=== PATIENT | male | born 1950 | race Asian ===

== ENCOUNTER 2017-02-08 05:44 | Inpatient (IN) | payer OTHER ==
[~2017-02-08] VITALS: Ht 167.6 cm; Wt 99.8 kg
[2017-02-08] VITALS (16 sets, daily range): BP systolic 108–139; BP diastolic 65–89
[2017-02-08] MEDS ORDERED: LOSARTAN POTAS100 MG ORAL (05:46)
[2017-02-08] MEDS ORDERED: VITAMIN D1000 UNI1 ORAL (05:46)
[2017-02-08] MEDS ORDERED: BISOPROLOL FUMAR5 MG PO (05:46)
[2017-02-08] MEDS ORDERED: METFORMIN HCL1000 M3 PO (05:46)
[2017-02-08] MEDS ORDERED: PLAVIX75 MG ORAL (05:46)
[2017-02-08] MEDS ORDERED: ACTOS45 MG ORAL (05:46)
[2017-02-08] MEDS ORDERED: ATORVASTATIN CA20 MG ORAL (05:46)
[2017-02-08] MEDS ORDERED: ASPIR 8181 MG ORAL (05:46)
[2017-02-08] MEDS ORDERED: Thrombin 5000 units TOPIC ONE (07:06)
[2017-02-08] MEDS ORDERED: Bupivacaine w/Epi 0.5% 30ml Vial INJ ONE (07:06)
[2017-02-08] MEDS ORDERED: Thrombin 5000 units spray kit TOPIC ONE (07:07)
[2017-02-08] MEDS ORDERED: Gelfoam Absorbable 1gm powder pkt TOPIC ONE (07:07)
[2017-02-08] MEDS ORDERED: Bacitracin 50000 Units Vial ONE ×2 (07:07→09:52)
--- NOTE | 2017-02-08 07:13 | Pre-Procedure Note/Attestation ---
Pre-Procedure Note/Attestation Complete Prior to Procedure Procedure Narrative: L4-4 & L4-5 instability and disc collapse. For ALIF L3-4 & L4-5 Indications for Procedure Pre-Operative Diagnosis: L4-4 & L4-5 instability and disc collapse Attestation I attest that I discussed the nature of the procedure; its benefits; risks and complications; and alternatives (and the risks and benefits of such alternatives ), prior to the procedure, with the patient (or the patient's legal entry level sales representative). I attest that, if there was a reasonable possibility of needing a blood transfusion, the patient (or the patient's legal entry level sales representative) was given the [place] [facility] standardized written summary, pursuant to the Lio Preethi Blood Safety Act ([place] Health and Safety Code # 1645, as amended). I attest that I re-evaluated the patient just prior to the surgery and that there has been no change in the patient's H&P, except as documented below: LEEROY BLACK Feb 08, 2017 07:13
[2017-02-08] MEDS ORDERED: Heparin 5000 units/ml inj ONE (07:38)
[2017-02-08] MEDS ORDERED: LR 1000ml ONE (08:00)
[2017-02-08] MEDS ORDERED: fentaNYL 250mcg/5ml ONE (08:00)
[2017-02-08] MEDS ORDERED: Zemuron 50mg/5ml Inj IV ONE (08:00)
[2017-02-08] MEDS ORDERED: Sterile Water Irrig 1000ml IRRIG ONE (08:00)
[2017-02-08] MEDS ORDERED: Propofol 10mg/ml 20ml IV ONE (08:00)
[2017-02-08] MEDS ORDERED: Neostigmine 1mg/ml 10ml Inj ONE (08:00)
[2017-02-08] MEDS ORDERED: NS Irrig 1000ml ONE (08:00)
[2017-02-08] MEDS ORDERED: Ketorolac 30mg Inj ONE (08:00)
[2017-02-08] MEDS ORDERED: Succinylcholine 20mg/ml 10ml vial ONE (08:00)
[2017-02-08] MEDS ORDERED: Midazolam 2mg/2ml Inj ONE (08:00)
[2017-02-08] MEDS ORDERED: Glycopyrrolate 0.2mg/ml 1ml Vial ONE (08:00)
[2017-02-08] MEDS ORDERED: LR 1000ml 1,000 ML IVLG SCH (08:38)
--- NOTE | 2017-02-08 08:38 | Anethesia Preoperative Eval ---
Anesthesia Pre-op PMH/ROS General Date of Evaluation: Feb 08, 2017 Time of Evaluation: 07:30 Anesthesiologist: Monica ASA Score: ASA 3 Mallampati Score Class I : Soft palate, uvula, fauces, pillars visible Class II: Soft palate, uvula, fauces visible Class III: Soft palate, base of uvula visible Class IV: Only hard plate visible Mallampati Classification: Class III Surgeon: Felipe Diagnosis: Lumbar radiculopathy Surgical Procedure: Anterior discectomy withninterbody fusion L3-L4 L4-L5 Anesthesia History: none Social History: smoking - h/o Family History: no anesthesia problems Allergies: Coded Allergies: No Known Allergies (Unverified , 02/08/17) Medications: see eMAR Past Medical History Cardiovascular: Reports: CAD - stable coronary stents x2 no recent CP, HTN, Denies: [place], arrhythmia, other, valve dz Pulmonary: Reports: OBED, Denies: COPD, asthma, other Gastrointestinal/Genitourinary: Reports: GERD, Denies: CRI, ESRD, other Neurologic/Psychiatric: Reports: other, Denies: CVA, TIA, dementia, depression/anxiety Endocrine: Reports: DM - on pills, Denies: hypothyroidism, other, steroids HEENT: Denies: GRINDSTONE (L), GRINDSTONE (R), cataract (L), cataract (R), glaucoma, other Hematology/Immune: Denies: DVT, anemia, bleeding disorder, other Musculoskeletal/Integumentary: Denies: DDD, DJD, OA, RA, edema, other Other: obesity PMH Narrative: as above PSxH Narrative: shoulder Sx coronary stents Anesthesia Pre-op Phys. Exam Physician Exam Last Vital Signs Date Time Temp Pulse Resp B/P Pulse Ox O2 Delivery O2 Flow Rate FiO2 02/08/17 06:36 98.0 70 20 139/86 95 Room Air Constitutional: NAD Neurologic: CN 2-12 intact Cardiovascular: RRR, no M/R/G Respiratory: CTA Gastrointestinal: other - obesty Airway Exam Mallampati Score: Class III MO: limited Neck: short ROM: limited Teeth: missing Dentures: no lower, no upper Anesthesia Pre-op A/P Labs see chart Accucheck 119 at admission Studies Pre-op Studies: EKG - NSR, CXR - WNL, echo - EF 60-65% Risk Assessment & Plan Assessment: ASA 3 Plan: GA with ETT Status Change Before Surgery: No Pre-Antibiotics Drug: Ancef 2 gr. Given Within 1 Hr of Incision: Yes Time Given: 08:10 GAIL TERAN M.D. Feb 08, 2017 08:38
[2017-02-08] MEDS ORDERED: Meperidine 25mg/0.5ml Inj (FOR RIGORS ONLY) IV PRN (08:45)
[2017-02-08] MEDS ORDERED: Midazolam 2mg/2ml Inj IVP PRN (08:45)
[2017-02-08] MEDS ORDERED: Ketorolac 30mg Inj IV PRN (08:45)
[2017-02-08] MEDS ORDERED: Hydromorphone 0.5mg/0.5ml inj IVP PRN (08:45)
[2017-02-08] MEDS ORDERED: DiphenhydrAMINE 50mg/ml Inj IVP PRN ×2 (08:45→10:30)
--- NOTE | 2017-02-08 10:25 | Operative Note - PDOC ---
Operative Note Operative Note Pre-op Diagnosis: L4-4 & L4-5 instability and disc collapse Procedure: Anterior Lumbar Discectomy and Fusion with Instrumentation Post-op Diagnosis: same as pre-op Operative Findings: consistent w/pre-op dx studies Surgeon: Felipe Bridge Attacher: FLORA Black Additional Surgeons: Cotton - Vascular Access Anesthesiologist: Monica Anesthesia: general Specimen: yes Complications: none Condition: stable Estimated Blood Loss: minimal Drains: none Implant(s) used?: Yes - Wilfred InFix devices (2) 7 DBM LEEROY BLACK Feb 08, 2017 10:25
[2017-02-08] MEDS ORDERED: LORazepam 1mg tab ORAL PRN (10:30)
[2017-02-08] MEDS ORDERED: Naloxone 0.4mg/ml Inj IVP PRN ×2 (10:30)
[2017-02-08] MEDS ORDERED: Rate Change PCA 1 Each MISC PRN (10:30)
[2017-02-08] MEDS ORDERED: HYDROmorphone 1mg/ml Carpuject IVP PRN (10:30)
[2017-02-08] MEDS ORDERED: Acetaminophen 650 MG SUPP RECTAL PRN (10:30)
--- NOTE | 2017-02-08 10:55 | Immediate Post-Op Evaluation ---
Immediate Post-Op Evalulation Immediate Post-Op Evalulation Procedure: Anterior discectomy fusion L3-L4 L4-L5 Date of Evaluation: Feb 08, 2017 Time of Evaluation: 10:54 IV Fluids: 1200 Blood Products: none Estimated Blood Loss: 100 Urinary Output: 150 Blood Pressure Systolic: 124 Blood Pressure Diastolic: 64 Pulse Rate: 72 Respiratory Rate: 20 O2 Sat by Pulse Oximetry: 99 Temperature (Fahrenheit): 97.6 Pain Score (1-10): 2 Nausea: No Vomiting: No Complications none Patient Status: reacts, patent, extubated, none Hydration Status: adequate GAIL TERAN M.D. Feb 08, 2017 10:55
[2017-02-08] MEDS: PCA HYDROmorphone 1mg/ml 30 ML IV PRN (11:46)
--- NOTE | 2017-02-08 12:00 | Operative Note - Dictated ---
DATE OF OPERATION: 02/08/2017 FACILITY: [facility]. SURGEON: Derek Wang M.D. and co-surgeon with vascular approach is Dr. Cotton. ROTOFORMER BACKTENDER: Betina Johansen ANESTHESIOLOGIST: Pankaj Anderson M.D. ANESTHESIA: General endotracheal with arterial blood pressure monitoring. Pulse oximetry and Cell Saver also utilized. Preoperative Diagnosis: Spondylitic change, disc herniations at L3-4 and L4-5 showing elements of canal and foraminal encroachment as well as instability causing radiculopathy. POSTOPERATIVE DIAGNOSIS: Spondylitic change, disc herniations at L3-4 and L4-5 showing elements of canal and foraminal encroachment as well as instability causing radiculopathy. OPERATIVE PROCEDURE: Left pararectus anterior approach to the lumbar spine with vessel mobilization and retraction by Dr. Cotton using a table fixed frame and reverse tip blades. An anterior annulotomy was done with a nuclear diskectomy, partial vertebrectomy at both L3-4 and L4-5 levels. A bilateral neural foraminotomy and microneurolysis was also accomplished. Fixation at both levels was within infix cage, 12 mm in height, large footprint with 3+3 degrees of added lordosis. Fusion was accomplished using autogenous bone and bone protein. The image intensifier was also used for placement of the cages. The patient was induced in the supine position. He was intubated. An arterial line was created. Bolster was placed in the lumbar area to create normal lordosis. His abdomen was prepped and draped freely. Marker was taken and a left pararectus incision was done by Dr. Cotton. He mobilized the rectus with a retroperitoneal approach to the anterior spine mobilizing both the aorta and vena cava, which were retracted using a table fixed frame and reverse tip blades. The center of the disk at L3-4 and L4-5 were marked with a spinal needle. An AP and lateral image. The anterior disc at L4-5 was then removed using a large 10 blade the cartilaginous endplate and soft disc was then removed sequentially from front to back using angled and straight larger to smaller curettes, Kerrisons, and pituitaries. Distraction was accomplished using Keiko tree detachable lordotic distraction plugs, which began at 8 mm and progressed to 14 mm in maximal height. The posterior longitudinal ligament and posterior disc anulus was removed and the dural sac was exposed. The bilateral neural foraminotomy and microneurolysis at L4-L5 was done. All remnants of the cartilaginous endplates were removed. The cortical end of L4 and 5 were smoothed. An 8 mm template was used with good contact, fit, and good stability. Two large foot plates were then inserted, tapped into place and then the side struts were inserted and cold welded. The construct had good contact of the engaging anchors to the inferior aspect of L4 and superior aspect of L5. The anterior cage is flushed with the anterior vertebral body. On AP view, the cage was well-centered. The size of the cage inserted was 12 mm and not 8 mm. Rest of the construct remains the same with a large foot plate and 3+ 3 degrees of lordosis. Attention was then paid to the L3-4 level. Center of the disc was marked. An anterior annulotomy was accomplished. The nuclear disc at cartilaginous endplate was then sequentially removed from front to back using sequentially larger lordotic distractors. The posterior longitudinal ligament posterior disc anulus were removed and the whole posterior aspect of the disc was debulked. Each foramen was widely cleared to free the exiting and traversing roots. The space was sized up to 12 mm and a 12 mm a large footprint was chosen. The endplates were inserted, tapped into place and then the side struts were placed into the skids. Position was checked and then the struts were locked. Bone protein and autogenous bone that had been harvested during the decompression part of the procedure was placed between the 2 endplates. Final x-rays were taken to check position. Pulse oximetry was checked. There was no significant bleeding at 100 mL. The wound was closed in layers including the peritoneum rectus sheath subcutaneous and skin. The patient tolerated the procedure well. He was placed in a bulky compression dressing and then returned to recovery room in good condition. Derek Wang M.D. DR: ANALISA JOB#: [id number] CC: ELYSE
--- NOTE | 2017-02-08 12:30 | Operative Note - Dictated ---
DATE OF OPERATION: 02/08/2017 VASCULAR SURGEON: Jeremy Cotton M.D. SPINE SURGEON: Derek Wang M.D. PREOPERATIVE DIAGNOSIS: Degenerative disc disease. POSTOPERATIVE DIAGNOSIS: Degenerative disc disease. PROCEDURE PERFORMED: 1. Anterior retroperitoneal exposure of L3-4 vertebral interspace. 2. Anterior retroperitoneal exposure of L4-5 vertebral interspace. INDICATIONS: The patient is a very pleasant gentleman, who is seen in my office prior to surgery. He did come and see me with a elevator constructor electric to translate Polish. He was carefully explained the need for vascular surgery involvement for mobilization of the vascular structures for exposure of the lumbar spine, possibly vascular injury, possible need for blood transfusion, and deep vein thrombosis were all discussed. DESCRIPTION OF FINDINGS: A vertical midline incision was used just extending supraumbilically. A left retroperitoneal approach was used. There is no peritoneum or ureteral violation. There is no vascular injury. Exposure of L3-4 and L4-5 was obtained with retraction of left iliac vessels and distal aorta towards the patient's right. There is no vascular injury. Fluoroscopy is used to confirm the appropriate level. On completion, the peritoneum and ureter intact. Iliac vessels are intact. There is normal pulse oximetry in the left leg. BLOOD LOSS: Less than 100 mL. DESCRIPTION OF PROCEDURE: The patient was taken to the operating room, general anesthesia was used. Intravenous antibiotics were given. The patient's abdomen was prepped draped. Appropriate time-out procedures were taken. A vertical midline incision made infraumbilically and extended just left side of the umbilicus extending just above the umbilicus. The anterior fascia was incised longitudinally midline. A plane was identified posterior to the left rectus abdominis developed posterolaterally towards the patient's left. The retroperitoneal space entered below the arcuate line. The peritoneum and ureter mobilized towards the patient's right exposing the left common iliac vessels. Dissection was carried down on left side of the iliac artery and vein. Overlying lymphatics were ligated with vascular clips. The L3 segmental artery and vein as well as the L4 segmental artery and vein were all identified and ligated with vascular clips and divided. The iliolumbar vein was not a large caliber vessel, defer this to patient and did not require discrete mobilization. The left iliac vessels and distal aorta were then retracted towards the patient's right and using the Omni retractor system. Carmona blades were used to retract the vessels on the patient's right side. The Knox exposing the anterior surface of L3-4 and L4-5. Fluoroscopy then used to confirm the appropriate level and then instrumentation was performed at L3-4 and L4-5 dictated separately. On completion, the peritoneum and ureter intact. Iliac vessels were intact. Anterior fascia closed using #1 PDS in running fashion. Skin and subcutaneous tissue closed with 3-0 Vicryl and 4-0 Monocryl running subcuticular closure technique. ESTIMATED BLOOD LOSS: Less than 100 mL. COMPLICATIONS: None. Jeremy Cotton M.D. DR: MIRNA JOB#: [id number] CC:
--- NOTE | 2017-02-08 13:59 | Diagnostic Imaging Report ---
Indication: PAIN Technique: Intraoperative imaging Comparison: None Findings: Intraoperative images demonstrate surgical tool projected at the anterior aspect of the L3-4 and L4-5 discs. Subsequent images document placement of disc prostheses at these levels. Impression: Intraoperative imaging, as described
[2017-02-08] MEDS: ceFAZolin sod 1 GM in D5W 55 ML IV SCH (15:44)
[2017-02-08] MEDS: PCA shift volume MISC SCH (19:21)
[2017-02-09] MEDS: ceFAZolin sod 1 GM in D5W 55 ML IV SCH ×2 (00:16→08:54)
[2017-02-09 00:32] VITALS: BP 126/77
[2017-02-09 04:00] VITALS: BP 128/74
[2017-02-09] MEDS: PCA shift volume MISC SCH ×2 (07:29→19:13)
[2017-02-09 08:12] VITALS: BP 138/80
--- NOTE | 2017-02-09 08:30 | General Progress Note ---
Assessment/Plan Problem List: (1) Disc disorder of lumbar region ICD Codes: M51.9 - Unspecified thoracic, thoracolumbar and lumbosacral intervertebral disc disorder SNOMED: 41729907, 025407665 (2) Hypertension ICD Codes: I10 - Essential (primary) hypertension SNOMED: 39747618 (3) Atherosclerotic cardiovascular disease ICD Codes: I25.10 - Atherosclerotic heart disease of rincon coronary artery without angina pectoris SNOMED: 34748177 Status: stable Assessment/Plan pain rx ivf mobilize dvt prophylaxis bp rx Subjective ROS Limited/Unobtainable: No Constitutional: Reports: no symptoms HEENT: Reports: no symptoms Cardiovascular: Reports: no symptoms Respiratory: Reports: no symptoms Gastrointestinal/Abdominal: Reports: no symptoms Genitourinary: Reports: no symptoms Neurologic/Psychiatric: Reports: no symptoms Endocrine: Reports: no symptoms Hematologic/Lymphatic: Reports: no symptoms Allergies: Coded Allergies: No Known Allergies (Unverified , 02/08/17) All Systems: reviewed and negative except above Subjective s/p alif and fusion. tolerated well. ambulating with pt. c/o post op pain Objective Last 24 Hour Vital Signs Date Time Temp Pulse Resp B/P Pulse Ox O2 Delivery O2 Flow Rate FiO2 02/09/17 08:12 98.8 94 20 138/80 93 Room Air 02/09/17 04:00 99.1 77 20 128/74 96 Nasal Cannula 3.0 02/09/17 04:00 18 02/09/17 00:32 98.1 78 19 126/77 94 Nasal Cannula 3.0 02/09/17 00:00 18 02/08/17 20:00 17 02/08/17 20:00 98.1 73 20 138/83 96 Nasal Cannula 3.0 02/08/17 16:00 96.2 80 18 110/67 93 Room Air 02/08/17 16:00 17 02/08/17 13:45 97.0 83 17 116/71 94 Nasal Cannula 3.0 02/08/17 13:34 16 02/08/17 13:20 16 02/08/17 13:15 96.1 78 16 114/65 94 Nasal Cannula 3.0 02/08/17 12:35 98.0 85 14 124/71 96 Nasal Cannula 3.0 02/08/17 12:30 15 02/08/17 12:20 78 16 118/89 96 Nasal Cannula 3.0 02/08/17 12:16 97.8 02/08/17 12:15 14 02/08/17 12:05 97.8 02/08/17 12:05 81 14 121/80 96 Nasal Cannula 3.0 02/08/17 12:00 13 02/08/17 11:50 83 14 118/76 96 Nasal Cannula 3.0 02/08/17 11:46 21 02/08/17 11:35 85 23 109/77 96 Nasal Cannula 3.0 02/08/17 11:25 84 15 131/82 96 Nasal Cannula 3.0 02/08/17 11:10 80 16 109/79 96 Simple Mask 6.0 02/08/17 11:00 79 16 126/78 96 Simple Mask 6.0 02/08/17 10:55 72 20 99 02/08/17 10:53 86 25 118/73 96 Simple Mask 6.0 02/08/17 10:48 82 20 123/73 96 Simple Mask 6.0 02/08/17 10:43 97.7 87 18 108/67 96 Simple Mask 6.0 Intake and Output 02/08/17 02/09/17 19:00 07:00 Intake Total 2400 ml 1205 ml Output Total 500 ml 450 ml Balance 1900 ml 755 ml Intake IV Total 2400 ml 1205 ml Output Urine Total 400 ml 450 ml Estimated Blood Loss 100 ml # Voids 1 Height (Feet): 5 Height (Inches): 6.00 Weight (Pounds): 220 General Appearance: WD/WN Neck: supple Cardiovascular: regular rhythm Respiratory/Chest: lungs clear Abdomen: decreased bowel sounds Edema: no edema noted Arm (L), no edema noted Arm (R), no edema noted Leg (L), no edema noted Leg (R), no edema noted Pedal (L), no edema noted Pedal (R), no edema noted Generalized CARRIE COSME Feb 09, 2017 08:30
[2017-02-09] MEDS: Losartan 50mg tab ORAL SCH (08:55)
[2017-02-09] MEDS: Vitamin D 1000 IU Tab ORAL SCH (08:59)
--- NOTE | 2017-02-09 09:49 | General Surgery Progress Note ---
General Surgery-Progress Note Subjective Procedure Performed Anterior Lumbar Discectomy and Fusion with Instrumentation Symptoms: pain same Objective Last 24 Hour Vital Signs Date Time Temp Pulse Resp B/P Pulse Ox O2 Delivery O2 Flow Rate FiO2 02/09/17 08:55 138/80 02/09/17 08:12 98.8 94 20 138/80 93 Room Air 02/09/17 04:00 99.1 77 20 128/74 96 Nasal Cannula 3.0 02/09/17 04:00 18 02/09/17 00:32 98.1 78 19 126/77 94 Nasal Cannula 3.0 02/09/17 00:00 18 02/08/17 20:00 17 02/08/17 20:00 98.1 73 20 138/83 96 Nasal Cannula 3.0 02/08/17 16:00 96.2 80 18 110/67 93 Room Air 02/08/17 16:00 17 02/08/17 13:45 97.0 83 17 116/71 94 Nasal Cannula 3.0 02/08/17 13:34 16 02/08/17 13:20 16 02/08/17 13:15 96.1 78 16 114/65 94 Nasal Cannula 3.0 02/08/17 12:35 98.0 85 14 124/71 96 Nasal Cannula 3.0 02/08/17 12:30 15 02/08/17 12:20 78 16 118/89 96 Nasal Cannula 3.0 02/08/17 12:16 97.8 02/08/17 12:15 14 02/08/17 12:05 97.8 02/08/17 12:05 81 14 121/80 96 Nasal Cannula 3.0 02/08/17 12:00 13 02/08/17 11:50 83 14 118/76 96 Nasal Cannula 3.0 02/08/17 11:46 21 02/08/17 11:35 85 23 109/77 96 Nasal Cannula 3.0 02/08/17 11:25 84 15 131/82 96 Nasal Cannula 3.0 02/08/17 11:10 80 16 109/79 96 Simple Mask 6.0 02/08/17 11:00 79 16 126/78 96 Simple Mask 6.0 02/08/17 10:55 72 20 99 02/08/17 10:53 86 25 118/73 96 Simple Mask 6.0 02/08/17 10:48 82 20 123/73 96 Simple Mask 6.0 02/08/17 10:43 97.7 87 18 108/67 96 Simple Mask 6.0 I&O Intake and Output 02/08/17 02/09/17 19:00 07:00 Intake Total 2400 ml 1205 ml Output Total 500 ml 450 ml Balance 1900 ml 755 ml Intake IV Total 2400 ml 1205 ml Output Urine Total 400 ml 450 ml Estimated Blood Loss 100 ml # Voids 1 Dressing: dry Wound: clean Drains: none Additional Comments Stable overnight, pain remains mostly in low back / abdomen. No lower G/I activity yet. Out of bed today with PT. Lower extremity strength 5/[address] Pena following. LEEROY BLACK Feb 09, 2017 09:49
--- NOTE | 2017-02-09 10:07 | 48 Hour Post Anesthesia Eval ---
Post Anesthesia Evaluation Procedure: Anterior discectomy fusion L3-L4 L4-L5 Date of Evaluation: Feb 09, 2017 Time of Evaluation: 10:10 Blood Pressure Systolic: 138 0: 80 Pulse Rate: 94 Respiratory Rate: 20 Temperature (Fahrenheit): 98.8 O2 Sat by Pulse Oximetry: 93 Airway: patent Nausea: No Vomiting: No Pain Intensity: 6 If pain is > 6 Comment: Patient not using PAEDIATRIC SURGEON. Explained PAEDIATRIC SURGEON use to patient. Hydration Status: adequate Cardiopulmonary Status: Stable Mental Status/LOC: patient returned to baseline Follow-up Care/Observations: As per surgery Post-Anesthesia Complications: No anesthetic complication Follow-up care needed: N/A SIRENA KIM M.D. Feb 09, 2017 10:07
[2017-02-09] MEDS: PCA HYDROmorphone 1mg/ml 30 ML IV PRN (11:40)
[2017-02-09 11:51] VITALS: BP 120/74
[2017-02-09 15:56] VITALS: BP 137/86
[2017-02-09 20:00] VITALS: BP 139/74
[2017-02-10] VITALS (7 sets, daily range): BP systolic 126–146; BP diastolic 67–82
[2017-02-10] MEDS: PCA shift volume MISC SCH (07:00)
[2017-02-10] MEDS: Losartan 50mg tab ORAL SCH (08:55)
[2017-02-10] MEDS: Vitamin D 1000 IU Tab ORAL SCH (08:56)
[2017-02-10] MEDS ORDERED: HYDROmorphone 1mg/ml Carpuject IVP PRN (10:30)
[2017-02-10] MEDS ORDERED: Norco 5mg/325mg tab ORAL PRN (10:30)
[2017-02-10 11:42] LABS: BASOPHILS % (AUTO) 0.4 % (0.0-2.0); EOSINOPHILS % (AUTO) 0.1 % (0.0-3.0); LYMPHOCYTES % (AUTO) 13.2 % (20.0-45.0); MEAN CORPUSCULAR HEMOGLOBIN 33.4 PG (27.0-31.0); MEAN CORPUSCULAR HGB CONC 33.1 G/DL (32.0-36.0); MEAN CORPUSCULAR VOLUME 101 FL (80-99); MEAN PLATELET VOLUME 5.4 FL (6.5-10.1); MONOCYTES % (AUTO) 7.6 % (1.0-10.0); NEUTROPHILS % (AUTO) 78.7 % (45.0-75.0); PLATELET COUNT 159 K/UL (150-450); RED BLOOD COUNT 3.92 M/UL (4.70-6.10); RED CELL DISTRIBUTION WIDTH 10.9 % (11.6-14.8)
[2017-02-10 11:57] LABS: ALANINE AMINOTRANSFERASE 12 U/L (3-41); ALBUMIN/GLOBULIN RATIO 1.1 (1.0-2.7); ANION GAP 11 (5-15); ASPARTATE AMINO TRANSFERASE 35 U/L (5-40); CALCIUM 8.5 mg/dL (8.6-10.2); CARBON DIOXIDE 25 mEQ/L (20-30); CHLORIDE 102 mEQ/L (98-107); CREATININE 0.8 mg/dL (0.7-1.2); GLOMERULAR FILTRATION RATE > 60 mL/min (>60); HEMOLYSIS 6; POTASSIUM 3.9 mEQ/L (3.4-4.9); SODIUM 138 mEQ/L (135-145); TOTAL PROTEIN 6.6 g/dL (6.6-8.7)
[2017-02-10 12:13] LABS: BILIRUBIN,DIRECT 0.2 mg/dL (0.1-0.3)
--- NOTE | 2017-02-10 12:23 | General Surgery Progress Note ---
General Surgery-Progress Note Subjective Procedure Performed Anterior Lumbar Discectomy and Fusion with Instrumentation Symptoms: improved Objective Last 24 Hour Vital Signs Date Time Temp Pulse Resp B/P Pulse Ox O2 Delivery O2 Flow Rate FiO2 02/10/17 12:12 98.0 87 20 131/82 98 Room Air 02/10/17 10:45 16 02/10/17 08:55 134/73 02/10/17 08:10 97.7 89 21 134/73 91 Room Air 02/10/17 08:00 16 02/10/17 08:00 97.7 89 21 134/73 91 Room Air 02/10/17 04:00 16 02/10/17 04:00 99.0 79 17 127/71 93 Room Air 02/10/17 00:00 98.3 80 18 126/74 93 Room Air 02/10/17 00:00 17 02/09/17 20:00 16 02/09/17 20:00 97.6 86 18 139/74 93 Room Air 02/09/17 16:00 18 02/09/17 15:56 98.9 71 20 137/86 100 Room Air I&O Intake and Output 02/09/17 02/10/17 19:00 07:00 Intake Total 1155 ml 1100 ml Output Total 1800 ml 1850 ml Balance -645 ml -750 ml Intake IV Total 1155 ml 1100 ml Output Urine Total 1800 ml 1850 ml # Voids 1 2 Dressing: dry Wound: clean Drains: none Abdomen: soft Laboratory Tests Test 02/10/17 11:05 White Blood Count 9.0 K/UL (4.8-10.8) Red Blood Count 3.92 M/UL (4.70-6.10) L Hemoglobin 13.1 G/DL (14.2-18.0) L Hematocrit 39.6 % (42.0-52.0) L Mean Corpuscular Volume 101 FL (80-99) H Mean Corpuscular Hemoglobin 33.4 PG (27.0-31.0) H Mean Corpuscular Hemoglobin Concent 33.1 G/DL (32.0-36.0) Red Cell Distribution Width 10.9 % (11.6-14.8) L Platelet Count 159 K/UL (150-450) Mean Platelet Volume 5.4 FL (6.5-10.1) L Neutrophils (%) (Auto) 78.7 % (45.0-75.0) H Lymphocytes (%) (Auto) 13.2 % (20.0-45.0) L Monocytes (%) (Auto) 7.6 % (1.0-10.0) Eosinophils (%) (Auto) 0.1 % (0.0-3.0) Basophils (%) (Auto) 0.4 % (0.0-2.0) Sodium Level 138 mEQ/L (135-145) Potassium Level 3.9 mEQ/L (3.4-4.9) Chloride Level 102 mEQ/L (98-107) Carbon Dioxide Level 25 mEQ/L (20-30) Anion Gap 11 (5-15) Blood Urea Nitrogen 12 mg/dL (7-23) Creatinine 0.8 mg/dL (0.7-1.2) Estimat Glomerular Filtration Rate > 60 mL/min (>60) Glucose Level 159 mg/dL (74-106) H Calcium Level 8.5 mg/dL (8.6-10.2) L Total Bilirubin 1.4 mg/dL (0.0-1.2) H Direct Bilirubin 0.2 mg/dL (0.1-0.3) Aspartate Amino Transf (AST/SGOT) 35 U/L (5-40) Alanine Aminotransferase (ALT/SGPT) 12 U/L (3-41) Alkaline Phosphatase 42 U/L (40-129) Total Protein 6.6 g/dL (6.6-8.7) Albumin 3.5 g/dL (3.5-5.2) Globulin 3.1 g/dL Albumin/Globulin Ratio 1.1 (1.0-2.7) Additional Comments No lower track GI gas >>>NPO Out fo bed with PT. Dr. Pena following. LEEROY LBACK Feb 10, 2017 12:22
[2017-02-10] MEDS: HYDROmorphone 1mg/ml Carpuject SUBQ PRN ×2 (12:54→20:01)
--- NOTE | 2017-02-10 14:02 | General Progress Note ---
Assessment/Plan Problem List: (1) Disc disorder of lumbar region ICD Codes: M51.9 - Unspecified thoracic, thoracolumbar and lumbosacral intervertebral disc disorder SNOMED: 49055435, 703092386 (2) Hypertension ICD Codes: I10 - Essential (primary) hypertension SNOMED: 76738076 (3) Atherosclerotic cardiovascular disease ICD Codes: I25.10 - Atherosclerotic heart disease of [place] coronary artery without angina pectoris SNOMED: 16160423 Status: stable Assessment/Plan pain rx ivf labs mobilize dvt prophylaxis bp rx Subjective ROS Limited/Unobtainable: No Constitutional: Reports: malaise, weakness HEENT: Reports: no symptoms Cardiovascular: Reports: no symptoms Respiratory: Reports: no symptoms Gastrointestinal/Abdominal: Reports: constipated Genitourinary: Reports: no symptoms Neurologic/Psychiatric: Reports: no symptoms Endocrine: Reports: no symptoms Hematologic/Lymphatic: Reports: no symptoms Allergies: Coded Allergies: No Known Allergies (Unverified , 02/08/17) All Systems: reviewed and negative except above Subjective s/p alif and fusion. tolerated well. ambulating with pt. pain better controlled. no BMs. Not passing gas. Objective Last 24 Hour Vital Signs Date Time Temp Pulse Resp B/P Pulse Ox O2 Delivery O2 Flow Rate FiO2 02/10/17 12:12 98.0 87 20 131/82 98 Room Air 02/10/17 10:45 16 02/10/17 08:55 134/73 02/10/17 08:10 97.7 89 21 134/73 91 Room Air 02/10/17 08:00 16 02/10/17 08:00 97.7 89 21 134/73 91 Room Air 02/10/17 04:00 16 02/10/17 04:00 99.0 79 17 127/71 93 Room Air 02/10/17 00:00 98.3 80 18 126/74 93 Room Air 02/10/17 00:00 17 02/09/17 20:00 16 02/09/17 20:00 97.6 86 18 139/74 93 Room Air 02/09/17 16:00 18 02/09/17 15:56 98.9 71 20 137/86 100 Room Air Intake and Output 02/09/17 02/10/17 19:00 07:00 Intake Total 1155 ml 1100 ml Output Total 1800 ml 1850 ml Balance -645 ml -750 ml Intake IV Total 1155 ml 1100 ml Output Urine Total 1800 ml 1850 ml # Voids 1 2 Laboratory Tests 02/10/17 11:05: White Blood Count 9.0, Red Blood Count 3.92L, Hemoglobin 13.1L, Hematocrit 39.6L , Mean Corpuscular Volume 101H, Mean Corpuscular Hemoglobin 33.4H, Mean Corpuscular Hemoglobin Concent 33.1, Red Cell Distribution Width 10.9L, Platelet Count 159, Mean Platelet Volume 5.4L, Neutrophils (%) (Auto) 78.7H, Lymphocytes (%) (Auto) 13.2L, Monocytes (%) (Auto) 7.6, Eosinophils (%) (Auto) 0.1, Basophils (%) (Auto) 0.4, Sodium Level 138, Potassium Level 3.9, Chloride Level 102, Carbon Dioxide Level 25, Anion Gap 11, Blood Urea Nitrogen 12, Creatinine 0.8, Estimat Glomerular Filtration Rate > 60, Glucose Level 159H, Calcium Level 8.5L, Total Bilirubin 1.4H, Direct Bilirubin 0.2, Aspartate Amino Transf (AST/SGOT) 35, Alanine Aminotransferase (ALT/SGPT) 12, Alkaline Phosphatase 42, Total Protein 6.6, Albumin 3.5, Globulin 3.1, Albumin/Globulin Ratio 1.1 Height (Feet): 5 Height (Inches): 6.00 Weight (Pounds): 220 General Appearance: WD/WN, no apparent distress, alert Neck: supple Cardiovascular: normal rate, regular rhythm Respiratory/Chest: chest wall non-tender, lungs clear, normal breath sounds, no respiratory distress Abdomen: soft, decreased bowel sounds Edema: no edema noted Arm (L), no edema noted Arm (R), no edema noted Leg (L), no edema noted Leg (R), no edema noted Pedal (L), no edema noted Pedal (R), no edema noted Generalized CARRIE COSME Feb 10, 2017 14:02
[2017-02-10] MEDS ORDERED: guaiFENesin 100mg/5ml Liq ud ORAL PRN (16:45)
[2017-02-11 00:08] VITALS: BP 136/76
[2017-02-11] MEDS: HYDROmorphone 1mg/ml Carpuject SUBQ PRN (03:01)
[2017-02-11 04:13] VITALS: BP 130/70
[2017-02-11 08:06] VITALS: BP 128/72
[2017-02-11] MEDS: Losartan 50mg tab ORAL SCH (08:43)
[2017-02-11] MEDS: Vitamin D 1000 IU Tab ORAL SCH (08:43)
--- NOTE | 2017-02-11 10:47 | General Progress Note ---
Assessment/Plan Problem List: (1) Disc disorder of lumbar region ICD Codes: M51.9 - Unspecified thoracic, thoracolumbar and lumbosacral intervertebral disc disorder SNOMED: 81230968, [id number] (2) Hypertension ICD Codes: I10 - Essential (primary) hypertension SNOMED: 50620189 (3) Atherosclerotic cardiovascular disease ICD Codes: I25.10 - Atherosclerotic heart disease of [place] coronary artery without angina pectoris SNOMED: 01364201 Status: stable, progressing Assessment/Plan pain rx ivf labs mobilize dvt prophylaxis bp rx advance pos?? abx Subjective ROS Limited/Unobtainable: No Constitutional: Reports: no symptoms HEENT: Reports: no symptoms Cardiovascular: Reports: no symptoms Respiratory: Reports: no symptoms Gastrointestinal/Abdominal: Reports: abdomen distended, abdominal pain Genitourinary: Reports: no symptoms Neurologic/Psychiatric: Reports: no symptoms Endocrine: Reports: no symptoms Hematologic/Lymphatic: Reports: no symptoms Allergies: Coded Allergies: No Known Allergies (Unverified , 02/08/17) All Systems: reviewed and negative except above Subjective s/p alif and fusion. tolerated well. ambulating with pt. pain better controlled. no BMs. +passing gas. pain at incision site. no fevers. Objective Last 24 Hour Vital Signs Date Time Temp Pulse Resp B/P Pulse Ox O2 Delivery O2 Flow Rate FiO2 02/11/17 08:43 120/69 02/11/17 08:06 97.3 80 20 128/72 93 Room Air 02/11/17 04:13 98.1 87 19 130/70 93 Room Air 02/11/17 00:08 99.5 89 18 136/76 92 Room Air 02/10/17 20:18 99.5 90 19 146/82 93 Room Air 02/10/17 15:49 97.7 89 20 141/67 97 Room Air 02/10/17 12:12 98.0 87 20 131/82 98 Room Air Intake and Output 02/10/17 02/11/17 19:00 07:00 Intake Total 1200 ml 1340 ml Output Total 500 ml Balance 1200 ml 840 ml Intake Oral 240 ml IV Total 1200 ml 1100 ml Output Urine Total 500 ml # Voids 2 Laboratory Tests 02/10/17 11:05: White Blood Count 9.0, Red Blood Count 3.92L, Hemoglobin 13.1L, Hematocrit 39.6L , Mean Corpuscular Volume 101H, Mean Corpuscular Hemoglobin 33.4H, Mean Corpuscular Hemoglobin Concent 33.1, Red Cell Distribution Width 10.9L, Platelet Count 159, Mean Platelet Volume 5.4L, Neutrophils (%) (Auto) 78.7H, Lymphocytes (%) (Auto) 13.2L, Monocytes (%) (Auto) 7.6, Eosinophils (%) (Auto) 0.1, Basophils (%) (Auto) 0.4, Sodium Level 138, Potassium Level 3.9, Chloride Level 102, Carbon Dioxide Level 25, Anion Gap 11, Blood Urea Nitrogen 12, Creatinine 0.8, Estimat Glomerular Filtration Rate > 60, Glucose Level 159H, Calcium Level 8.5L, Total Bilirubin 1.4H, Direct Bilirubin 0.2, Aspartate Amino Transf (AST/SGOT) 35, Alanine Aminotransferase (ALT/SGPT) 12, Alkaline Phosphatase 42, Total Protein 6.6, Albumin 3.5, Globulin 3.1, Albumin/Globulin Ratio 1.1 Height (Feet): 5 Height (Inches): 6.00 Weight (Pounds): 220 Objective General Appearance: WD/WN, no apparent distress, alert Neck: supple Cardiovascular: normal rate, regular rhythm Respiratory/Chest: chest wall non-tender, lungs clear, normal breath sounds, no respiratory distress Abdomen: soft, decreased bowel sounds. incision- min erythema Edema: no edema noted Arm (L), no edema noted Arm (R), no edema noted Leg (L), no edema noted Leg (R), no edema noted Pedal (L), no edema noted Pedal (R), no edema noted Generalized CARRIE COSME Feb 11, 2017 10:47
[2017-02-11 11:43] VITALS: BP 125/79
[2017-02-11] MEDS: ceFAZolin sod 1 GM in D5W 55 ML IVPB SCH ×3 (12:57→21:23)
--- NOTE | 2017-02-11 13:15 | General Surgery Progress Note ---
General Surgery-Progress Note Subjective Procedure Performed Anterior Lumbar Discectomy and Fusion with Instrumentation Symptoms: improved Objective Last 24 Hour Vital Signs Date Time Temp Pulse Resp B/P Pulse Ox O2 Delivery O2 Flow Rate FiO2 02/11/17 11:43 98.1 76 20 125/79 93 Room Air 02/11/17 08:43 120/69 02/11/17 08:06 97.3 80 20 128/72 93 Room Air 02/11/17 04:13 98.1 87 19 130/70 93 Room Air 02/11/17 00:08 99.5 89 18 136/76 92 Room Air 02/10/17 20:18 99.5 90 19 146/82 93 Room Air 02/10/17 15:49 97.7 89 20 141/67 97 Room Air I&O Intake and Output 02/10/17 02/11/17 19:00 07:00 Intake Total 1200 ml 1340 ml Output Total 500 ml Balance 1200 ml 840 ml Intake Oral 240 ml IV Total 1200 ml 1100 ml Output Urine Total 500 ml # Voids 2 Dressing: dry Wound: clean Drains: none Additional Comments Patient beginning to pass gas. Will advance diet to regular as tolerated. When tolerating full diet will be ready for discharge. Dr. Pena following. LEEROY BLACK Feb 11, 2017 13:15
[2017-02-11 15:59] VITALS: BP 124/75
[2017-02-11 20:36] VITALS: BP 145/79
[2017-02-12 00:35] VITALS: BP 149/81
[2017-02-12 04:00] VITALS: BP 140/80
[2017-02-12] MEDS: Norco 7.5mg/325mg tab ORAL PRN (05:02)
[2017-02-12] MEDS: ceFAZolin sod 1 GM in D5W 55 ML IVPB SCH ×3 (05:02→21:30)
[2017-02-12 06:43] LABS: BASOPHILS % (AUTO) 0.6 % (0.0-2.0); EOSINOPHILS % (AUTO) 2.1 % (0.0-3.0); LYMPHOCYTES % (AUTO) 14.9 % (20.0-45.0); MEAN CORPUSCULAR HEMOGLOBIN 33.6 PG (27.0-31.0); MEAN CORPUSCULAR HGB CONC 33.7 G/DL (32.0-36.0); MEAN CORPUSCULAR VOLUME 99 FL (80-99); MEAN PLATELET VOLUME 5.7 FL (6.5-10.1); MONOCYTES % (AUTO) 8.8 % (1.0-10.0); NEUTROPHILS % (AUTO) 73.6 % (45.0-75.0); PLATELET COUNT 189 K/UL (150-450); RED BLOOD COUNT 3.57 M/UL (4.70-6.10); RED CELL DISTRIBUTION WIDTH 10.8 % (11.6-14.8); WHITE BLOOD COUNT 7.3 K/UL (4.8-10.8)
[2017-02-12 08:00] VITALS: BP 125/74
--- NOTE | 2017-02-12 08:25 | General Progress Note ---
Assessment/Plan Problem List: (1) Disc disorder of lumbar region ICD Codes: M51.9 - Unspecified thoracic, thoracolumbar and lumbosacral intervertebral disc disorder SNOMED: 53348763, 192224694 (2) Hypertension ICD Codes: I10 - Essential (primary) hypertension SNOMED: 06550705 (3) Atherosclerotic cardiovascular disease ICD Codes: I25.10 - Atherosclerotic heart disease of [place] coronary artery without angina pectoris SNOMED: 14212344 Status: stable, progressing Assessment/Plan pain rx ivf dcd mobilize dvt prophylaxis bp rx abx po Subjective ROS Limited/Unobtainable: No Constitutional: Reports: malaise, weakness HEENT: Reports: no symptoms Cardiovascular: Reports: no symptoms Respiratory: Reports: no symptoms Gastrointestinal/Abdominal: Reports: no symptoms Genitourinary: Reports: no symptoms Neurologic/Psychiatric: Reports: no symptoms Endocrine: Reports: no symptoms Hematologic/Lymphatic: Reports: no symptoms Allergies: Coded Allergies: No Known Allergies (Unverified , 02/08/17) All Systems: reviewed and negative except above Subjective s/p alif and fusion. tolerated well. ambulating with pt. pain better controlled. no BMs. +passing gas. still no bms. abd pain better. tolerating pos Objective Last 24 Hour Vital Signs Date Time Temp Pulse Resp B/P Pulse Ox O2 Delivery O2 Flow Rate FiO2 02/12/17 04:00 97.9 82 17 140/80 92 Room Air 02/12/17 00:35 97.7 81 19 149/81 93 Room Air 02/11/17 20:36 97.7 72 19 145/79 96 Room Air 02/11/17 15:59 98.3 68 20 124/75 95 Room Air 02/11/17 11:43 98.1 76 20 125/79 93 Room Air 02/11/17 08:43 120/69 Intake and Output 02/11/17 02/12/17 19:00 07:00 Intake Total 1420 ml 840 ml Output Total 425 ml Balance 995 ml 840 ml Intake Oral 720 ml 240 ml IV Total 700 ml 600 ml Output Urine Total 425 ml # Voids 1 1 Laboratory Tests 02/12/17 05:45: White Blood Count 7.3, Red Blood Count 3.57L, Hemoglobin 12.0L, Hematocrit 35.5L , Mean Corpuscular Volume 99, Mean Corpuscular Hemoglobin 33.6H, Mean Corpuscular Hemoglobin Concent 33.7, Red Cell Distribution Width 10.8L, Platelet Count 189, Mean Platelet Volume 5.7L, Neutrophils (%) (Auto) 73.6, Lymphocytes (%) (Auto) 14.9L, Monocytes (%) (Auto) 8.8, Eosinophils (%) (Auto) 2.1, Basophils (%) (Auto) 0.6 Height (Feet): 5 Height (Inches): 6.00 Weight (Pounds): 220 Objective General Appearance: WD/WN, no apparent distress, alert Neck: supple Cardiovascular: normal rate, regular rhythm Respiratory/Chest: chest wall non-tender, lungs clear, normal breath sounds, no respiratory distress Abdomen: soft, decreased bowel sounds. incision- min erythema Edema: no edema noted Arm (L), no edema noted Arm (R), no edema noted Leg (L), no edema noted Leg (R), no edema noted Pedal (L), no edema noted Pedal (R), no edema noted Generalized CARRIE COSME Feb 12, 2017 08:25
--- NOTE | 2017-02-12 09:05 | General Surgery Progress Note ---
General Surgery-Progress Note Subjective Procedure Performed Anterior Lumbar Discectomy and Fusion with Instrumentation Symptoms: improved Objective Last 24 Hour Vital Signs Date Time Temp Pulse Resp B/P Pulse Ox O2 Delivery O2 Flow Rate FiO2 02/12/17 08:00 97.9 73 19 125/74 93 Room Air 02/12/17 04:00 97.9 82 17 140/80 92 Room Air 02/12/17 00:35 97.7 81 19 149/81 93 Room Air 02/11/17 20:36 97.7 72 19 145/79 96 Room Air 02/11/17 15:59 98.3 68 20 124/75 95 Room Air 02/11/17 11:43 98.1 76 20 125/79 93 Room Air I&O Intake and Output 02/11/17 02/12/17 19:00 07:00 Intake Total 1420 ml 840 ml Output Total 425 ml Balance 995 ml 840 ml Intake Oral 720 ml 240 ml IV Total 700 ml 600 ml Output Urine Total 425 ml # Voids 1 1 Dressing: dry Wound: clean Drains: none Laboratory Tests Test 02/12/17 05:45 White Blood Count 7.3 K/UL (4.8-10.8) Red Blood Count 3.57 M/UL (4.70-6.10) L Hemoglobin 12.0 G/DL (14.2-18.0) L Hematocrit 35.5 % (42.0-52.0) L Mean Corpuscular Volume 99 FL (80-99) Mean Corpuscular Hemoglobin 33.6 PG (27.0-31.0) H Mean Corpuscular Hemoglobin Concent 33.7 G/DL (32.0-36.0) Red Cell Distribution Width 10.8 % (11.6-14.8) L Platelet Count 189 K/UL (150-450) Mean Platelet Volume 5.7 FL (6.5-10.1) L Neutrophils (%) (Auto) 73.6 % (45.0-75.0) Lymphocytes (%) (Auto) 14.9 % (20.0-45.0) L Monocytes (%) (Auto) 8.8 % (1.0-10.0) Eosinophils (%) (Auto) 2.1 % (0.0-3.0) Basophils (%) (Auto) 0.6 % (0.0-2.0) Additional Comments Patient took full regular meal this AM. Need patient to tolerate at last one more full meal before saafe to discharge.. RN Home Health Evaluation scheduled to take place this AM, authorized by insurance carrier, to decide if patient will need home health services. manager body evaluation requested for this AM to see if patient can go home alone. (Above mentioned home health services not NOT likely to start right away) . Dr. Pena following. LEEROY BLACK Feb 12, 2017 09:05
[2017-02-12] MEDS: Vitamin D 1000 IU Tab ORAL SCH (09:07)
[2017-02-12] MEDS: Losartan 50mg tab ORAL SCH (09:07)
[2017-02-12 12:00] VITALS: BP 131/75
[2017-02-12] MEDS ORDERED: Miralax 17gm pkt ORAL ONE (12:00)
[2017-02-12 16:00] VITALS: BP 131/75
[2017-02-12 20:00] VITALS: BP 142/72
[2017-02-12] MEDS: Atorvastatin 20mg tab ORAL SCH (21:30)
[2017-02-13 00:13] VITALS: BP 134/71
[2017-02-13] MEDS: Norco 7.5mg/325mg tab ORAL PRN (01:29)
[2017-02-13 04:00] VITALS: BP 106/74
[2017-02-13] MEDS: ceFAZolin sod 1 GM in D5W 55 ML IVPB SCH ×2 (06:15→14:10)
[2017-02-13 08:01] VITALS: BP 127/69
--- NOTE | 2017-02-13 09:05 | General Progress Note ---
Assessment/Plan Problem List: (1) Disc disorder of lumbar region ICD Codes: M51.9 - Unspecified thoracic, thoracolumbar and lumbosacral intervertebral disc disorder SNOMED: 12438440, 403959990 (2) Hypertension ICD Codes: I10 - Essential (primary) hypertension SNOMED: 38081225 (3) Atherosclerotic cardiovascular disease ICD Codes: I25.10 - Atherosclerotic heart disease of [place] coronary artery without angina pectoris SNOMED: 91053599 Assessment/Plan pain rx mobilize dvt prophylaxis bp rx abx po dc planning ok for dc from med stand point Subjective ROS Limited/Unobtainable: No Constitutional: Reports: malaise, weakness HEENT: Reports: no symptoms Cardiovascular: Reports: no symptoms Respiratory: Reports: no symptoms Gastrointestinal/Abdominal: Reports: no symptoms Genitourinary: Reports: no symptoms Neurologic/Psychiatric: Reports: no symptoms Endocrine: Reports: no symptoms Hematologic/Lymphatic: Reports: no symptoms Allergies: Coded Allergies: No Known Allergies (Unverified , 02/08/17) All Systems: reviewed and negative except above Subjective s/p alif and fusion. tolerated well. ambulating with pt. pain better controlled. 2 bowel movements yesterday. Objective Last 24 Hour Vital Signs Date Time Temp Pulse Resp B/P Pulse Ox O2 Delivery O2 Flow Rate FiO2 02/13/17 08:01 96.8 60 20 127/69 98 Room Air 02/13/17 04:00 97.7 62 19 106/74 95 Room Air 02/13/17 00:13 99.1 82 21 134/71 94 Room Air 02/12/17 20:00 99.0 75 20 142/72 96 Room Air 02/12/17 16:00 98.1 78 20 131/75 95 Room Air 02/12/17 12:00 97.9 69 19 131/75 95 Room Air 02/12/17 09:07 124/74 Intake and Output 02/12/17 02/13/17 19:00 07:00 Intake Total 555 ml 240 ml Balance 555 ml 240 ml Intake Oral 300 ml 240 ml IV Total 255 ml # Voids 4 2 Height (Feet): 5 Height (Inches): 6.00 Weight (Pounds): 220 Objective General Appearance: WD/WN, no apparent distress, alert Neck: supple Cardiovascular: normal rate, regular rhythm Respiratory/Chest: chest wall non-tender, lungs clear, normal breath sounds, no respiratory distress Abdomen: soft, decreased bowel sounds. incision- min erythema Edema: no edema noted Arm (L), no edema noted Arm (R), no edema noted Leg (L), no edema noted Leg (R), no edema noted Pedal (L), no edema noted Pedal (R), no edema noted Generalized CARRIE COSME Feb 13, 2017 09:05
[2017-02-13] MEDS: Losartan 50mg tab ORAL SCH (09:07)
[2017-02-13] MEDS: Vitamin D 1000 IU Tab ORAL SCH (09:07)
[2017-02-13 12:08] VITALS: BP 130/71
[2017-02-13 16:04] VITALS: BP 112/71
[2017-02-13 20:24] VITALS: BP 141/74
[2017-02-13] MEDS ORDERED: Tubing IV Secondary IV ONE (21:30)
[2017-02-13] MEDS ORDERED: D5 1/2NS 1000ml IV ONE (21:30)
[2017-02-13] MEDS: Atorvastatin 20mg tab ORAL SCH (21:47)
[2017-02-13] MEDS: Cephalexin 500mg cap ORAL SCH (21:48)
[2017-02-14] VITALS (7 sets, daily range): BP systolic 98–142; BP diastolic 57–83
[2017-02-14] MEDS: Cephalexin 500mg cap ORAL SCH ×3 (06:18→22:24)
--- NOTE | 2017-02-14 09:01 | General Progress Note ---
Assessment/Plan Problem List: (1) Disc disorder of lumbar region ICD Codes: M51.9 - Unspecified thoracic, thoracolumbar and lumbosacral intervertebral disc disorder SNOMED: 45763906, 338909074 (2) Hypertension ICD Codes: I10 - Essential (primary) hypertension SNOMED: 70431280 (3) Atherosclerotic cardiovascular disease ICD Codes: I25.10 - Atherosclerotic heart disease of [place] coronary artery without angina pectoris SNOMED: 80910493 Status: stable Assessment/Plan pain rx mobilize dvt prophylaxis bp rx abx po dc planning ok for dc from med stand point Subjective ROS Limited/Unobtainable: No Constitutional: Reports: weakness HEENT: Reports: no symptoms Cardiovascular: Reports: no symptoms Respiratory: Reports: no symptoms Gastrointestinal/Abdominal: Reports: no symptoms Genitourinary: Reports: no symptoms Neurologic/Psychiatric: Reports: no symptoms Endocrine: Reports: no symptoms Hematologic/Lymphatic: Reports: no symptoms Allergies: Coded Allergies: No Known Allergies (Unverified , 02/08/17) All Systems: reviewed and negative except above Subjective s/p alif and fusion. tolerated well. ambulating with pt. pain better controlled. having bowel movements. demanding to [facility] rehab Objective Last 24 Hour Vital Signs Date Time Temp Pulse Resp B/P Pulse Ox O2 Delivery O2 Flow Rate FiO2 02/14/17 08:15 98.2 70 21 131/72 91 Room Air 02/14/17 04:35 97.5 80 19 142/82 95 Room Air 02/14/17 00:45 98.6 76 18 140/83 93 Room Air 02/13/17 20:24 99.1 73 18 141/74 95 Room Air 02/13/17 16:04 96.5 71 20 112/71 95 Room Air 02/13/17 12:08 98.1 87 20 130/71 99 Room Air 02/13/17 09:07 127/69 Intake and Output 02/13/17 02/14/17 19:00 07:00 Intake Total 860 ml 240 ml Balance 860 ml 240 ml Intake Oral 860 ml 240 ml # Voids 3 2 Height (Feet): 5 Height (Inches): 6.00 Weight (Pounds): 220 Objective General Appearance: WD/WN, no apparent distress, alert Neck: supple Cardiovascular: normal rate, regular rhythm Respiratory/Chest: chest wall non-tender, lungs clear, normal breath sounds, no respiratory distress Abdomen: soft, decreased bowel sounds. incision- min erythema Edema: no edema noted Arm (L), no edema noted Arm (R), no edema noted Leg (L), no edema noted Leg (R), no edema noted Pedal (L), no edema noted Pedal (R), no edema noted Generalized CARRIE COSME Feb 14, 2017 09:01
[2017-02-14] MEDS: Norco 7.5mg/325mg tab ORAL PRN ×2 (09:31→14:20)
[2017-02-14] MEDS: Losartan 50mg tab ORAL SCH (09:31)
[2017-02-14] MEDS: Vitamin D 1000 IU Tab ORAL SCH (09:32)
[2017-02-14] MEDS: Atorvastatin 20mg tab ORAL SCH (22:24)
[2017-02-15 00:27] VITALS: BP 113/65
[2017-02-15 04:36] VITALS: BP 115/70
[2017-02-15] MEDS: Norco 7.5mg/325mg tab ORAL PRN (04:50)
[2017-02-15] MEDS: Cephalexin 500mg cap ORAL SCH ×2 (05:11→17:18)
[2017-02-15 08:00] VITALS: BP 98/62
[2017-02-15] MEDS: Vitamin D 1000 IU Tab ORAL SCH (08:42)
[2017-02-15] MEDS: Losartan 50mg tab ORAL SCH (09:33)
--- NOTE | 2017-02-15 10:26 | General Progress Note ---
Assessment/Plan Assessment/Plan Anterior Lumbar Discectomy and Fusion with Instrumentation hypertension CAD PLAN 1. incentive spirometry 2. dc to rehab or home 3. PT evaluation and therapy 4. Hydration encouraged 5. Pain management 6. discharge planning Subjective Allergies: Coded Allergies: No Known Allergies (Unverified , 02/08/17) Subjective care noted and reviewed wants to go to rehab Objective Last 24 Hour Vital Signs Date Time Temp Pulse Resp B/P Pulse Ox O2 Delivery O2 Flow Rate FiO2 02/15/17 09:33 111/74 02/15/17 08:00 96.2 73 17 98/62 96 Room Air 02/15/17 04:36 98.4 67 17 115/70 93 Room Air 02/15/17 00:27 98.8 66 18 113/65 92 Room Air 02/14/17 20:50 113/65 02/14/17 20:32 98.3 60 19 98/58 93 Room Air 02/14/17 16:03 97.7 61 20 113/57 94 Room Air 02/14/17 15:19 97.7 02/14/17 12:05 97.7 70 19 132/68 92 Room Air 02/14/17 10:30 98.2 Intake and Output 02/14/17 02/15/17 19:00 07:00 Intake Total 240 ml Balance 240 ml Intake Oral 240 ml # Voids 2 1 Height (Feet): 5 Height (Inches): 6.00 Weight (Pounds): 220 Objective WDWN NAD clear breath sounds bilaterally without rhonchi or wheeze [id number] without MRG NABS nontender no HSM no CCE nonfocal TRICIA MCLEAN Feb 15, 2017 10:26
[2017-02-15 12:00] VITALS: BP 134/76
[2017-02-15 16:00] VITALS: BP 115/69
--- NOTE | 2017-02-16 09:58 | Discharge Summary ---
Discharge Summary Hospital Course Date of Admission Feb 08, 2017 at 05:44 Date of Discharge Feb 15, 2017 at 18:27 Admitting Diagnosis L3-L4 and L4-L5 disc instability and herniation with radiculopathy , Reason for Hospitalization: elective surgery HPI Pratik Rasheed is a 67 year old male who was admitted on Feb 08, 2017 at 05:44 for Disc Bulge Consultations dr Pena IM Procedures 02/08 dr Wang - Anterior Lumbar Discectomy and Fusion with Instrumentation 02/08 dr Cotton ( vascular) 1. Anterior retroperitoneal exposure of L3-4 vertebral interspace. 2. Anterior retroperitoneal exposure of L4-5 vertebral interspace. Hospital Course s/p surgery initially IVF, dc when tolerated diet pain management neurovascular intact surgery followed closely IS at the bedside PT Rx, ambulate DVT prophylaxis pain controlled voided tolerated diet incision C/D/I BP management with current regimen, stable BS management, stable patient preferred to go for short term rehab to SNF , cleared for dc fup as outpt with surgery as per surgery recommendation FINAL DIAGNOSIS DDD L spine L3-4 & L4-5 instability and disc collapse disc herniations at L3-4 and L4-5 with canal and foraminal encroachment and instability causing radiculopathy. s/p 02/08 Anterior Lumbar Discectomy and Fusion with Instrumentation HTN DM CAD Discharge Medications Continued Medications: Atorvastatin Calcium* (Atorvastatin Calcium*) 20 Mg Tablet 20 MG ORAL BEDTIME, TAB Bisoprolol Fumarate (Bisoprolol Fumarate) 5 Mg Tablet 5 MG PO DAILY, TAB Cholecalciferol (Vitamin D3)* (Vitamin D*) 1,000 Unit Tablet 2000 UNITS ORAL DAILY, #30 TAB 0 Refills Clopidogrel Bisulfate* (Plavix*) 75 Mg Tablet 75 MG ORAL DAILY, TAB Losartan Potassium (Losartan Potassium) 100 Mg Tablet 100 MG ORAL DAILY, TAB Metformin HCl (Metformin HCl ER) 1,000 Mg [id number] 1000 MG PO BID, TAB Pioglitazone Hcl* (Actos*) 45 Mg Tablet 45 MG ORAL DAILY, TAB Discharge Condition Upon Discharge: stable Discharge Disposition Patient was discharged to SNF/Subacute Facility(03) Discharge Diagnoses: Discharge Instructions Discharge Instructions Special Instructions I have been assigned to complete a D/C Summary on this account. I was not involved in the patient management Sapna Noel NP ([place]) Feb 16, 2017 09:58
== END 2017-02-15 18:27 | DRG 460 ==
LOC: SDSOVERFLO 05:44 → 3E 12:56
PROC: 0SG10A0 Fusion of 2 or more Lumbar Vertebral Joints with Interbody Fusion Device, Anterior Approach, Anterior Column, Open Approach (ICD-10-PCS; principal; 2017-02-08 07:30)
PROC: 0SB20ZZ Excision of Lumbar Vertebral Disc, Open Approach (ICD-10-PCS; principal; 2017-02-08 07:30)
DX: M51.16 Intervertebral disc disorders with radiculopathy, lumbar region (principal); I10 Essential (primary) hypertension; M53.2X6 Spinal instabilities, lumbar region; E78.00 Pure hypercholesterolemia, unspecified; E11.9 Type 2 diabetes mellitus without complications; Z86.73 Personal history of transient ischemic attack (TIA), and cerebral infarction without residual deficits; I25.10 Atherosclerotic heart disease of native coronary artery without angina pectoris; Z95.5 Presence of coronary angioplasty implant and graft; Z79.02 Long term (current) use of antithrombotics/antiplatelets; W01.0XXS Fall on same level from slipping, tripping and stumbling without subsequent striking against object, sequela
CPT/HCPCS: 36415; 72020; 76001; 80053; 82248; 82962; 85025; 86850; 86900; 86901; 87081; 94003; 94150; J2180; J2250; J2710

== ENCOUNTER 2019-02-17 07:58 | Day surgery (SDC) | payer OTHER ==
[2019-02-17] VITALS (8 sets, daily range): BP systolic 132–148; BP diastolic 75–94
[~2019-02-17] VITALS: Ht 167.6 cm; Wt 99.8 kg
[~2019-02-17 07:58] MED LIST: ACTOS45 MG ORAL; ASPIR 8181 MG ORAL; ATORVASTATIN CA20 MG ORAL; BISOPROLOL FUMAR5 MG PO; LOSARTAN POTAS100 MG ORAL; LR 1000ml 1,000 ML IVLG SCH; METFORMIN HCL1000 M3 PO; PLAVIX75 MG ORAL; VITAMIN D1000 UNI1 ORAL
--- NOTE | 2019-02-17 09:36 | Short Stay Surgery H&P ---
History of Present Illness History of Present Illness Chief Complaint GERDs and abdominal pains. HPI Pratik Rasheed is a 69 year old male who was admitted on for GERDS/abdominal pains Patient History Allergies: Coded Allergies: No Known Allergies (Unverified , 02/08/17) PAST MEDICAL HISTORY: (1) Diabetes (2) Hypertension (3) Hyperlipidemia (4) Gastritis (5) Coronary artery abnormality (6) H/O shoulder surgery (7) History of lumbar discectomy (8) History of heart surgery (9) History of knee surgery Medication History Scheduled Aspirin* (Aspir 81*), 81 MG ORAL DAILY, (Reported) Atorvastatin Calcium* (Atorvastatin Calcium*), 20 MG ORAL BEDTIME, (Reported) Bisoprolol Fumarate (Bisoprolol Fumarate), 5 MG PO DAILY, (Reported) Cholecalciferol (Vitamin D3)* (Vitamin D*), 2,000 UNITS ORAL DAILY, (Reported) Clopidogrel Bisulfate* (Plavix*), 75 MG ORAL DAILY, (Reported) Losartan Potassium (Losartan Potassium), 100 MG ORAL DAILY, (Reported) Metformin HCl (Metformin HCl ER), 1,000 MG PO BID, (Reported) Pioglitazone Hcl* (Actos*), 45 MG ORAL DAILY, (Reported) Review of Systems Cardiovascular: Reports: CAD - stable Respiratory: Reports: no symptoms Skeletal: Reports: trauma Gastrointestinal: Reports: gastro esophageal reflux disease Genitourinary: Reports: no symptoms Neurologic: Reports: no symptoms Endocrine: Reports: diabetes - type 2 Hematologic: Reports: no symptoms Physical Exam Skin: normal HENT: normal Heart: normal Lungs: normal Abdomen: abnormal Extremities: normal Genitourinary: normal Plan Plan of Care Upper GI endoscopy with biopsy Preop Interventions None. Summary of Findings See the reports Attestation Are the patient's medical conditions optimized for surgery? Attestation Response: yes Dionne De La Paz MD Feb 17, 2019 09:36
--- NOTE | 2019-02-17 09:37 | Pre-Procedure Note/Attestation ---
Pre-Procedure Note/Attestation Complete Prior to Procedure Planned Procedure: left Procedure Narrative: Examination of the upper GI. tract via endoscopy with obtaining biopsy. Indications for Procedure Pre-Operative Diagnosis: R/O Gastritis/Peptic ulcer/esophagitis. Attestation I attest that I discussed the nature of the procedure; its benefits; risks and complications; and alternatives (and the risks and benefits of such alternatives ), prior to the procedure, with the patient (or the patient's legal service center representative). I attest that, if there was a reasonable possibility of needing a blood transfusion, the patient (or the patient's legal service center representative) was given the [facility] standardized written summary, pursuant to the Lio Preethi Blood Safety Act ([place] Health and Safety Code # 1645, as amended). I attest that I re-evaluated the patient just prior to the surgery and that there has been no change in the patient's H&P, except as documented below: Dionne De La Paz MD Feb 17, 2019 09:37
--- NOTE | 2019-02-17 09:40 | Discharge Instructions ---
Discharge Instructions Discharge Instructions Follow up with: No need for office follow up any more. For Congestive Heart Failure Reminder Report to your physician any weight gain of 5 pounds or more in one week. Dionne De La Paz MD Feb 17, 2019 09:40
--- NOTE | 2019-02-17 09:50 | NUR ---
IV fluids started by Dr. Anderson and infusing well.
[2019-02-17] MEDS ORDERED: Midazolam 2mg/2ml Inj ONE (10:00)
[2019-02-17] MEDS ORDERED: Propofol 200mg/20ml IV ONE (10:00)
[2019-02-17] MEDS ORDERED: LR 1000ml ONE (10:00)
--- NOTE | 2019-02-17 10:12 | Endoscopy Procedure Note ---
Endoscopy Procedure Note General Indication for Procedure: Abdominal quyen ns/GERDs/history of gastritis/ esophagitis Procedures Performed: EGD - Moderate genralized gastritis; biopsy was taken from gastric body. Specimen: yes Pt Tolerated Procedure Well: Yes Estimated Blood Loss: none Anesthesia Anesthesiologist: Dr. Anderson Anesthesia: moderate sedation Medications Medication Given: see anesthesia record Inserted Devices Implant(s) used?: No Quality Quality of Bowel Preparation: Excellent Was there any complications?: No GI Core Measures 50 yrs or older w/o bx or poly: Not Applicable 10yrs. F/U recommended: Not Applicable If not recommended, why?: Med reason:<3 yrs.: System Reason:<3 yrs.: Dionne De La Paz MD Feb 17, 2019 10:12
--- NOTE | 2019-02-17 10:17 | Anethesia Preoperative Eval ---
Anesthesia Pre-op PMH/ROS General Date of Evaluation: Feb 17, 2019 Time of Evaluation: 09:44 Anesthesiologist: Monica ASA Score: ASA 3 Mallampati Score Class I : Soft palate, uvula, fauces, pillars visible Class II: Soft palate, uvula, fauces visible Class III: Soft palate, base of uvula visible Class IV: Only hard plate visible Mallampati Classification: Class III Surgeon: Brain Diagnosis: GERD Surgical Procedure: EGD Anesthesia History: none Allergies: Coded Allergies: No Known Allergies (Unverified , 02/08/17) Medications: see eMAR Patient NPO?: Yes Past Medical History Cardiovascular: Reports: HTN, CAD Pulmonary: Reports: OBED; Denies: asthma, COPD, other Gastrointestinal/Genitourinary: Reports: GERD; Denies: CRI, ESRD, other Neurologic/Psychiatric: Denies: dementia, CVA, depression/anxiety, TIA, other Endocrine: Reports: DM - stable on pills; Denies: hypothyroidism, steroids, other HEENT: Denies: cataract (L), cataract (R), glaucoma, [place] (L), [place] (R), other Hematology/Immune: Denies: anemia, DVT, bleeding disorder, other Musculoskeletal/Integumentary: Denies: OA, RA, DJD, DDD, edema, other Other: obesity PMH Narrative: as above PSxH Narrative: Anterior spinal fusion Anesthesia Pre-op Phys. Exam Physician Exam Last Vital Signs Date Time Temp Pulse Resp B/P (MAP) Pulse Ox O2 Delivery O2 Flow Rate FiO2 02/17/19 09:39 97.0 64 18 135/82 94 Room Air Constitutional: NAD Neurologic: CN 2-12 intact Cardiovascular: no M/R/G Respiratory: CTA Airway Exam Mallampati Score: Class III MO: limited Neck: short ROM: limited Teeth: missing Dentures: no upper, no lower Anesthesia Pre-op A/P Risk Assessment & Plan Assessment: ASA 3 Plan: MAC Status Change Before Surgery: Pankaj Waddell MD Feb 17, 2019 10:17
--- NOTE | 2019-02-17 10:30 | Immediate Post-Op Evaluation ---
Immediate Post-Op Evalulation Immediate Post-Op Evalulation Procedure: EGD with Bx Date of Evaluation: Feb 17, 2019 Time of Evaluation: 10:29 IV Fluids: 600 Blood Products: none Estimated Blood Loss: none Urinary Output: none Blood Pressure Systolic: 135 Blood Pressure Diastolic: 72 Pulse Rate: 62 Respiratory Rate: 20 O2 Sat by Pulse Oximetry: 98 Temperature (Fahrenheit): 97.5 Pain Score (1-10): 1 Nausea: No Vomiting: No Complications none Patient Status: awake, patent, none Hydration Status: adequate Pankaj Anderson MD Feb 17, 2019 10:30
--- NOTE | 2019-02-17 18:45 | Pre-op HX & Phy Repo 2 SIG ---
DATE OF ADMISSION: 02/17/2019 HISTORY OF PRESENT ILLNESS: The patient is a 69-year-old, non-Wolof speaking Chinese gentleman, who is being seen prior to undergoing the procedure for upper GI endoscopy for which he has been scheduled to receive for evaluation of his gastrointestinal symptoms that he has complained subsequent to his work injury. The applicant was seen in my office approximately two to three months ago when he was complaining of the epigastric pain. At this time, he is also complaining of pain in that area as well as experiencing gastroesophageal acid reflux in the form of moderate to severe heartburn. 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 He reported that he never had any gastrointestinal conditions before the injury and subsequently, as he was injured, he was started on multiple medications including nonsteroidal anti-inflammatory agents that he took for some time. He is also complaining of nausea and episodes of constipation as he has been receiving strong analgesics such as [place]. It is important to mention that he also has undergone an upper GI endoscopy approximately a year and a half ago in August 2017 by a private doctor, who reported that the result of the upper GI endoscopy was consistent with hiatal hernia, esophagitis, and gastritis. A biopsy, which was done from gastric body obviously was negative for Helicobacter pylori infection. PAST MEDICAL HISTORY: The applicant has had multiple medical problems, which are basically coronary artery disease, history of myocardial infarction and cardiac surgery for that, and also diabetes mellitus, hypertension, hyperlipidemia, and coronary artery disease as mentioned by other physicians examined the patient PAST SURGICAL HISTORY: The applicant has had multiple surgeries including both shoulders, also dorsolumbar surgery and heart surgery and knee surgeries. ALLERGIES: Nonsignificant HABITS: The applicant denies drinking alcohol or smoking cigarettes. MEDICATIONS: Current medications as the patient reports are Dexilant, metformin, atorvastatin, bisoprolol, and aspirin along with pioglitazone, Plavix, vitamin D and vitamin B12. He also occasionally took in the past medications such as Aleve. REVIEW OF SYSTEMS: Basically history of present illness. The applicant at this time complains of experiencing pain over different parts of the body. As mentioned earlier that he has been traumatized, however, he denies having any chest pain, shortness of breath, or cough, or diarrhea, but he has had history of constipation. PHYSICAL EXAMINATION: GENERAL: At this time reveals alert, well-oriented gentleman, who does not seem to be in any acute distress. VITAL SIGNS: Shows temperature 97, blood pressure 135/82, oxygen saturation 94% on room air, pulse rate 64 per minute, and respiratory rate 18 per minute. HEENT: Normocephalic. Pupils are equal in size and reactive to light and accommodation. No visible jaundice. Buccal cavity, tongue midline, well hydrated. No ulcers. NECK: Supple. No JVD, thyromegaly, or adenopathy. CHEST: Clear to auscultation and percussion. No rales or rhonchi. HEART: S1, S2 normal. Regular rhythm. No gallop or murmur heard at this time. ABDOMEN: Soft. There is no any evidence of hepatosplenomegaly. However, there is tenderness all over the abdomen on different sides of the abdomen noted. There is no palpable mass. Bowel sounds are present adequately. EXTREMITIES: Unremarkable. SKIN: Nonsignificant. LYMPHATICS: Nonsignificant. INITIAL PREOPERATIVE IMPRESSION: 1. Abdominal pain, mostly epigastric pain, mostly consistent with chronic gastroesophageal acid reflux with a history of gastritis, question of status of gastritis possibly induced by use of NSAID with a history of esophagitis. 2. History of coronary artery disease, hypertension, hyperlipidemia, and diabetes mellitus. 3. History of bodily injury, work-related, orthopedic diagnosis. RECOMMENDATION: At this time, the applicant seems to be quite stable to undergo the procedure of upper GI endoscopy for which he has been scheduled to be evaluated for the condition that he has been diagnosed in the past to be consistent with gastritis and esophagitis. The applicant understands the risks and benefits and will sign the consent. Said Femi De La Paz DR: LUIS ANGEL JOB#: [id number] CC:
--- NOTE | 2019-02-17 18:45 | Operative Note - Dictated ---
DATE OF OPERATION: 02/17/2019 SURGEON: Dionne De La Paz M.D. PROCEDURE: Esophagogastroduodenoscopy with biopsy. PREOPERATIVE DIAGNOSES: History of esophagitis, abdominal pain, gastroesophageal acid reflux. POSTOPERATIVE DIAGNOSIS: Evidence of moderate gastritis, otherwise normal study. Biopsy was taken per random from gastric body. MEDICATION USED: Per Dr. Anderson. INSTRUMENT: GIF Olympus upper GI video endoscope. DESCRIPTION OF PROCEDURE: The patient after arriving in the endoscopy unit, was told about risks and benefits of the procedure, which he accepted and signed informed consent. He was then put on the left lateral decubitus position. After adequate IV sedation, the scope was gently passed through the cricopharyngeal area, was lodged into the upper esophagus. At this time, the scope was gradually passed over the gastroesophageal junction. The entire length of esophagus looked normal. There was no any evidence of inflammatory process, ulceration, stricture, etc. No evidence of esophagitis noted. The scope reaching to the GE junction revealed no evidence of hiatal hernia or Iniguez's. At this time, the scope was advanced into the stomach. Gastric cavity was distended. Gastric fold came into view, which revealed evidence of moderate inflammatory process, generalized mostly in the body and the antrum, but there was no ulcers or tumors or bleeding sites, angiodysplasia, polyps, etc. At this point, one random biopsy from the gastric body was obtained and subsequently the scope was retroflexed and the area of the gastroesophageal junction was examined in a retrograde fashion, which revealed no other pathologies. Finally, scope was gradually passed towards the antrum introducing into the pylorus. First and second portion of duodenum were found to be normal. Finally, the scope was pulled out and procedure was terminated. The patient tolerated the procedure well and left the endoscopy room in a good condition. COMMENTS: The applicant has had history of chronic gastroesophageal acid reflux, which seems to have been aggravated by side effects of medications such as nonsteroidal anti-inflammatory agents that he is not currently taking. It seems he is currently stable by taking his acid suppressor such as Dexilant every now and then and there are no other symptoms in this regard. I would suggest that the patient should continue seeing his primary care physicians and receive the antacid and other acid suppressors in the future and no further recommendation for performance of upper GI endoscopy is made at this point. Said Femi De La Paz DR: SAM JOB#: [id number] CC:
== END 2019-02-17 12:00 | disposition home or self-care (01) ==
LOC: GAS 07:58
DX: K29.50 Unspecified chronic gastritis without bleeding (principal); K21.9 Gastro-esophageal reflux disease without esophagitis; R10.9 Unspecified abdominal pain; I11.9 Hypertensive heart disease without heart failure; G47.33 Obstructive sleep apnea (adult) (pediatric); E11.9 Type 2 diabetes mellitus without complications; E66.9 Obesity, unspecified; Z68.35 Body mass index [BMI] 35.0-35.9, adult; E78.5 Hyperlipidemia, unspecified; Z79.82 Long term (current) use of aspirin; Z79.899 Other long term (current) drug therapy; I25.2 Old myocardial infarction
CPT/HCPCS: 43239; 82962; J2250; J2704; 94003; 94150

== ENCOUNTER 2020-04-02 06:58 | Day surgery (SDC) | payer OTHER ==
[2020-04-02] VITALS (10 sets, daily range): BP systolic 116–158; BP diastolic 72–89
[~2020-04-02] VITALS: Ht 167.6 cm; Wt 90.7 kg
[~2020-04-02 06:58] MED LIST changes: -LR 1000ml 1,000 ML IVLG SCH
[2020-04-02] MEDS ORDERED: LR 1000ml 1,000 ML IVLG SCH ×2 (07:00→07:45)
--- NOTE | 2020-04-02 07:36 | Short Stay Surgery H&P ---
History of Present Illness History of Present Illness Chief Complaint Abdominal pains, GERDs and rectal bleeding HPI Pratik Rasheed is a 70 year old male who was admitted on for Rectal Bleedin g/abdominal pains/GERDs Patient History Allergies: Coded Allergies: No Known Allergies (Unverified , 02/08/17) PAST MEDICAL HISTORY: (1) Hyperlipidemia (2) Hypertension (3) Diabetes (4) Status post spinal surgery (5) Arthritis (6) Status post cardiac surgery Medication History Scheduled Aspirin* (Aspir 81*), 81 MG ORAL DAILY, (Reported) Atorvastatin Calcium* (Atorvastatin Calcium*), 20 MG ORAL BEDTIME, (Reported) Bisoprolol Fumarate (Bisoprolol Fumarate), 5 MG PO DAILY, (Reported) Cholecalciferol (Vitamin D3)* (Vitamin D*), 2,000 UNITS ORAL DAILY, (Reported) Clopidogrel Bisulfate* (Plavix*), 75 MG ORAL DAILY, (Reported) Losartan Potassium (Losartan Potassium), 100 MG ORAL DAILY, (Reported) Metformin HCl (Metformin HCl ER), 1,000 MG PO BID, (Reported) Pioglitazone Hcl* (Actos*), 45 MG ORAL DAILY, (Reported) Review of Systems Cardiovascular: Reports: hypertension Respiratory: Reports: no symptoms Skeletal: Reports: trauma Gastrointestinal: Reports: gastro esophageal reflux disease Genitourinary: Reports: no symptoms Neurologic: Reports: no symptoms Endocrine: Reports: diabetes - type 2 Hematologic: Reports: no symptoms Physical Exam Skin: normal HENT: normal Heart: normal Lungs: normal Abdomen: abnormal Extremities: normal Genitourinary: normal Plan Plan of Care Upper and lower GI endoscopy and biopsy. Preop Interventions None. Summary of Findings See the reports. Attestation Are the patient's medical conditions optimized for surgery? Attestation Response: yes Dionne De La Paz MD Apr 02, 2020 07:36
--- NOTE | 2020-04-02 07:37 | Pre-Procedure Note/Attestation ---
Pre-Procedure Note/Attestation Complete Prior to Procedure Planned Procedure: left Procedure Narrative: Examination of the upper and lower GI tract through endoscopy Indications for Procedure Pre-Operative Diagnosis: R/O colitis/hemorrhoids/gastritis/peptic ulcer. Attestation I attest that I discussed the nature of the procedure; its benefits; risks and complications; and alternatives (and the risks and benefits of such alternatives), prior to the procedure, with the patient (or the patient's legal premium service representative). I attest that, if there was a reasonable possibility of needing a blood transfusion, the patient (or the patient's legal premium service representative) was given the [facility] standardized written summary, pursuant to the [place] Pre[place] Blood Safety Act ([place] Health and Safety Code # 1645, as amended). I attest that I re-evaluated the patient just prior to the surgery and that there has been no change in the patient's H&P, except as documented below: Dionne De La Paz MD Apr 02, 2020 07:37
--- NOTE | 2020-04-02 07:41 | Anethesia Preoperative Eval ---
Anesthesia Pre-op PMH/ROS General Date of Evaluation: Apr 02, 2020 Time of Evaluation: 07:38 Anesthesiologist: Monica ASA Score: ASA 3 Mallampati Score Class I : Soft palate, uvula, fauces, pillars visible Class II: Soft palate, uvula, fauces visible Class III: Soft palate, base of uvula visible Class IV: Only hard plate visible Mallampati Classification: Class II Surgeon: Marcus Diagnosis: Abdominal pain Surgical Procedure: EGD Colonoscopy Anesthesia History: none Family History: no anesthesia problems Allergies: Coded Allergies: No Known Allergies (Unverified , 02/08/17) Medications: see eMAR Patient NPO?: Yes Past Medical History Cardiovascular: Reports: HTN, CAD - s/p angioplasty with stents placement; Denies: ND, valve dz, arrhythmia, other Pulmonary: Denies: asthma, COPD, OBED, other Gastrointestinal/Genitourinary: Reports: GERD; Denies: CRI, ESRD, other Neurologic/Psychiatric: Denies: dementia, CVA, depression/anxiety, TIA, other Endocrine: Reports: DM; Denies: hypothyroidism, steroids, other HEENT: Denies: cataract (L), cataract (R), glaucoma, [place] (L), DIOMEDE (R), other Hematology/Immune: Denies: anemia, DVT, bleeding disorder, other Musculoskeletal/Integumentary: Reports: OA; Denies: RA, DJD, DDD, edema, other Other: other - overweight PMH Narrative: as above PSxH Narrative: spine Sx. Anesthesia Pre-op Phys. Exam Physician Exam Constitutional: NAD Neurologic: CN 2-12 intact Cardiovascular: RRR, no M/R/G Respiratory: CTA Gastrointestinal: S/NT/ND Airway Exam Mallampati Score: Class II MO: limited Neck: stiff ROM: limited Teeth: missing Dentures: no upper, no lower Anesthesia Pre-op A/P Labs see chart Studies Pre-op Studies: EKG - SR Risk Assessment & Plan Assessment: ASA 3 Plan: MAC Status Change Before Surgery: No Pre-Antibiotics Drug: None Pankaj Anderson MD Apr 02, 2020 07:41
[2020-04-02] MEDS ORDERED: fentaNYL 100 mcg/2 mL IV PRN (07:45)
[2020-04-02] MEDS ORDERED: LR 1000ml ONE (09:00)
[2020-04-02] MEDS ORDERED: fentaNYL 100 mcg/2 mL IV ONE (09:00)
--- NOTE | 2020-04-02 09:04 | Endoscopy Procedure Note ---
Endoscopy Procedure Note General Indication for Procedure: Abdominal pains, rectal bleeding Procedures Performed: colonoscopy - Minimal internal hemorrhoids found otherwise completely normal total colonscopy found upto the base of the cecum. Poor colon prep. Specimen: none Pt Tolerated Procedure Well: Yes Estimated Blood Loss: none Anesthesia Anesthesiologist: Dr. De La Vega Anesthesia: moderate sedation Medications Medication Given: see anesthesia record Inserted Devices Implant(s) used?: No Quality Quality of Bowel Preparation: Poor Did scope reach the cecum?: Yes Was there any complications?: No GI Core Measures 50 yrs or older w/o bx or poly: Yes 10yrs. F/U recommended: Yes If not recommended, why?: Med reason:<3 yrs.: System Reason:<3 yrs.: Dionne De La Paz MD Apr 02, 2020 09:04
--- NOTE | 2020-04-02 09:05 | Discharge Instructions ---
Discharge Instructions Discharge Instructions Follow up with: See the doctor in office next week. Call for appointment. For Congestive Heart Failure Reminder Report to your physician any weight gain of 5 pounds or more in one week. Dionne De La Paz MD Apr 02, 2020 09:05
--- NOTE | 2020-04-02 09:12 | Immediate Post-Op Evaluation ---
Immediate Post-Op Evalulation Immediate Post-Op Evalulation Procedure: Colonoscopy Date of Evaluation: Apr 02, 2020 Time of Evaluation: 09:11 IV Fluids: 400 Blood Products: none Estimated Blood Loss: none Urinary Output: none Blood Pressure Systolic: 132 Blood Pressure Diastolic: 56 Pulse Rate: 58 Respiratory Rate: 20 O2 Sat by Pulse Oximetry: 99 Temperature (Fahrenheit): 97.6 Pain Score (1-10): 1 Nausea: No Vomiting: No Complications none Patient Status: awake, patent, none Hydration Status: adequate Pankaj Anderson MD Apr 02, 2020 09:12
--- NOTE | 2020-04-02 10:14 | Pre-op HX & Phy Repo 2 SIG ---
DATE OF ADMISSION: 04/02/2020 HISTORY OF PRESENT ILLNESS: The patient is a 70-year-old Upper Sorbian and Azeri-speaking gentleman, who is being seen today prior to undergoing the colonoscopic examination, which has been authorized for him to receive for evaluation of his gastrointestinal condition that he has suffered subsequent to his work injury. The patient was examined basically approximately a year or so ago in the office that he was complaining of abdominal pain and symptoms of gastroesophageal acid reflux. The patient was also having the problem with rectal bleeding with occasional constipation. At that point, the patient was also complaining of nausea, severe heartburn, and occasional rectal bleeding of minimal amount. As such, I suggested the patient should undergo procedure of colonoscopic examination, which was authorized. However, the upper GI endoscopy procedure was denied by the insurance carrier. At this time, the patient reports that he has been having some abdominal pain with occasional rectal bleeding, but there has been no history of weight loss. It is important to mention that he has recently been found to have renal carcinoma for which he is supposed to have surgery very soon in [place] as he is going to leave the country within a couple of weeks as he told me today. It is also important to mention that he had undergone an upper GI endoscopic examination approximately few years ago in which he was found to have hiatal hernia, esophagitis, and gastritis, but there was no any evidence of Helicobacter pylori infection mentioned. 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 As such, he had an incident of slipping on the floor, falling down and injuring different parts of the body including neck and back and shoulders and knees and the elbows. Subsequently, he received multiple medications and treatment including nonsteroidal anti-inflammatory agents and strong narcotics as well. PAST MEDICAL HISTORY: He has had history of hypertension, hyperlipidemia, diabetes mellitus, and arthritis, and history of coronary artery disease and myocardial infarction. PAST SURGICAL HISTORY: He has had operation over his both shoulders and also has had dorsolumbar surgery along with cardiac surgery. ALLERGIES: Nonsignificant. CHILDHOOD DISEASE: Nonsignificant. HABITS: He denies drinking alcohol or smoking cigarettes. MEDICATIONS: Current medications are metformin 500 mg twice a day and atorvastatin 20 mg daily. Also, he takes bisoprolol 5 mg daily along with folic acid and aspirin 81 mg daily. For the problem of diabetes, he takes pioglitazone 45 mg along with Plavix 75 mg for his heart condition, and vitamin D as well. FAMILY HISTORY: Nonsignificant. REVIEW OF SYSTEMS: Basically history of present illness. He has occasional abdominal pain and constipation, but denies having any chest pain or shortness of breath or cough. He also denies having any chest pain or angina symptoms today. PHYSICAL EXAMINATION: GENERAL: At this time reveals alert, oriented, very pleasant gentleman, who does not seem to be in any acute distress. He answers the questions quite properly. VITAL SIGNS: Temperature 97.1, pulse rate 67 per minute, blood pressure 134/86, respiratory rate 18 per minute, oxygen saturation 99% over the room air. HEENT: Normocephalic. Pupils are equal in size and reactive to light and accommodation. No visible jaundice. Buccal cavity, tongue midline, well hydrated. No ulcers. NECK: Supple. No JVD, thyromegaly, or adenopathy. CHEST: Clear to auscultation and percussion. No rales or rhonchi. HEART: S1, S2 normal. Regular rhythm. No gallops or murmur. ABDOMEN: Quite soft and minimal tenderness on palpation over the different areas of the abdomen, but there is no any evidence of hepatosplenomegaly. Bowel sounds are present. No masses. No rebound phenomenon. EXTREMITIES: Within normal limits. No pretibial edema, cyanosis, or clubbing. CENTRAL NERVOUS SYSTEM: Grossly normal. INITIAL PREOPERATIVE DIAGNOSES: 1. Abdominal pain with of periods of rectal bleeding and constipation, questionable etiology, rule out hemorrhoids versus colon polyps, tumors, colitis. 2. History of chronic gastroesophageal acid reflux, gastroesophageal reflux disease aggravated by use of NSAID medications. 3. Hypertension, diabetes, hyperlipidemia, and coronary artery disease. RECOMMENDATION: The applicant seems to be stable at this time to undergo the procedure of colonoscopic examination for which he has been authorized to receive. He understands the risks and benefits and signed the informed consent. Said Femi De La Paz DR: LUIS ANGEL JOB#: [id number] CC:
--- NOTE | 2020-04-02 10:20 | 48 Hour Post Anesthesia Eval ---
Post Anesthesia Evaluation Procedure: Colonoscopy Date of Evaluation: Apr 02, 2020 Time of Evaluation: 10:19 Blood Pressure Systolic: 116 0: 72 Pulse Rate: 62 Respiratory Rate: 18 Temperature (Fahrenheit): 97.6 O2 Sat by Pulse Oximetry: 98 Airway: patent Nausea: No Vomiting: No Pain Intensity: 1 Hydration Status: adequate Cardiopulmonary Status: stable Mental Status/LOC: patient returned to baseline Follow-up Care/Observations: n/a Post-Anesthesia Complications: none Follow-up care needed: ready to discharge Pankaj Anderson MD Apr 02, 2020 10:20
--- NOTE | 2020-04-02 10:30 | Operative Note - Dictated ---
DATE OF OPERATION: 04/02/2020 SURGEON: Dionne De La Paz MD. PROCEDURE: Total colonoscopy. PREOPERATIVE DIAGNOSES: Abdominal pain and rectal bleeding, rule out hemorrhoids versus colitis or polyps or tumors. POSTOPERATIVE DIAGNOSES: 1. Evidence of minimal internal hemorrhoids, otherwise completely normal total colonoscopy. 2. Poor colonic preparation. MEDICATION USED: Per Dr. Anderson, anesthesiologist. INSTRUMENT: GIF Olympus video colonoscope. DESCRIPTION OF PROCEDURE: The patient after arriving in the endoscopy unit, was told about risks and benefits of the procedure, which he accepted and signed informed consent. At this time, he was put on the left lateral decubitus position. After adequate IV sedation, the scope was gently passed through the anal area which revealed evidence of very minimal internal hemorrhoids, which was not friable at this time. A retroflexion maneuver was applied in the rectal area, which revealed no other abnormalities. There was no evidence of colitis or polyps or tumors. Gradually, the scope was passed through the rectosigmoid was introduced in the left descending colon. The colon preparation was not adequate and there was small pieces of formed stool along the colon and they had to be irrigated constantly. However, the scope was gradually passed through the left descending colon reaching to the splenic flexure. From there, it was guided into the transverse colon, hepatic flexure, and finally the scope was advanced all the way to the base of the cecum. There was no any other abnormalities found at this point. No evidence of polyps, tumors, strictures, colitis, etc. No hemangiomas noted. Finally after reaching to the base of the cecum and also demonstrating the presence of ileocecal valve, which looked normal. Finally within 6 minutes, the scope was gradually pulled out and reexamination of the colon through the colonoscopy did not reveal any abnormalities as I mentioned. The patient tolerated the procedure well and left the endoscopy room in a good condition. Dionen De La Paz M.D. DR: LUIS ANGEL JOB#: [id number] CC:
== END 2020-04-02 10:20 | disposition home or self-care (01) ==
LOC: SUR 06:58
DX: R10.9 Unspecified abdominal pain (principal); K62.5 Hemorrhage of anus and rectum; K64.8 Other hemorrhoids; E78.5 Hyperlipidemia, unspecified; E11.9 Type 2 diabetes mellitus without complications; K21.9 Gastro-esophageal reflux disease without esophagitis; I25.2 Old myocardial infarction; C64.9 Malignant neoplasm of unspecified kidney, except renal pelvis; M19.90 Unspecified osteoarthritis, unspecified site; Z79.82 Long term (current) use of aspirin; Z79.899 Other long term (current) drug therapy; Z79.84 Long term (current) use of oral hypoglycemic drugs; I11.9 Hypertensive heart disease without heart failure; I25.10 Atherosclerotic heart disease of native coronary artery without angina pectoris; Z79.02 Long term (current) use of antithrombotics/antiplatelets; Z95.5 Presence of coronary angioplasty implant and graft; E66.3 Overweight; Z68.32 Body mass index [BMI] 32.0-32.9, adult
CPT/HCPCS: 45378; 82962; 94003; J2704; J3010; J7120; U0002; 94150